=== PATIENT | female | born 1995 | race Caucasian/White ===

== ENCOUNTER 2016-07-14 11:01 | Outpatient (CLI) | payer MEDICAID | END 2016-07-14 11:02 | disposition home or self-care (01) | DX: E03.9 Hypothyroidism, unspecified (principal) ==

== ENCOUNTER 2017-06-12 23:46 | Emergency (ER) | payer MEDICAID ==
--- NOTE | 2017-06-13 01:44 | ED Physician Documentation ---
PD HPI ABD PAIN - Stated complaint Stated Complaint: ABDOMINAL PAIN - Chief complaint Chief Complaint: Abd Pain - History obtained from History obtained from: Patient - History of Present Illness Timing - onset: How many hours ago (approximately 24 hours ago) Timing - details: Gradual onset, Intermittant, Waxing and waning Pain level now: 6 Quality: Pain Location: Other (right flank and back) Improved by: Other (no ameliorating factors) Worsened by: Breathing Associated symptoms: Nausea, Vomiting. No: Fever, Diarrhea, Constipation Similar symptoms before: Has not had sx before Recently seen: Not recently seen Review of Systems Constitutional: denies: Fever, Chills, Sweats Cardiac: reports: Reviewed and negative Respiratory: reports: Reviewed and negative GI: reports: Abdominal Pain (right flank and back), Nausea, Vomiting. denies: Abdominal Swelling, Constipation, Diarrhea : denies: Dysuria, Frequency, Now EGA PD PAST MEDICAL HISTORY - Past Medical History Past Medical History: Yes Respiratory: Asthma Endocrine/Autoimmune: HyPOthyroidism GI: Cholelithiasis - Past Surgical History Past Surgical History: Yes General: Cholecystectomy HEENT: Tonsil/Adenoidectomy - Present Medications Home Medications: Ambulatory Orders Medication Instructions Recorded Confirmed traMADol [Ultram] 100 mg PO Q6H PRN #20 tablet 06/13/17 - Allergies Allergies/Adverse Reactions: Allergies Allergy/AdvReac Type Severity Reaction Status Date / Time No Known Drug Allergies Allergy Verified 06/12/17 23:54 - Social History Does the pt smoke?: Yes Smoking Status: Current every day smoker Does the pt drink ETOH?: Yes Substance Use and Type: Marijuana - Immunizations Immunizations are current?: No Immunizations: TDAP >10years/unknown PD ED PE NORMAL - Vitals Vital signs reviewed: Yes - General General: Alert and oriented X 3, No acute distress, Well developed/nourished - HEENT HEENT: Moist mucous membranes - Cardiac Cardiac: RRR, No murmur - Respiratory Respiratory: No respiratory distress, Clear bilaterally - Abdomen Abdomen: Normal bowel sounds, Soft, Non tender, Non distended, No organomegaly - Back Back: No CVA TTP - Derm Derm: No rash Results - Vitals Vitals: Oxygen O2 Source Room air - Labs Labs: Laboratory Tests 06/13/17 06/13/17 06/13/17 01:40 02:00 02:00 WBC 10.3 RBC 4.97 Hgb 13.9 Hct 41.9 MCV 84.3 MCH 27.9 MCHC 33.1 RDW 13.5 Plt Count 279 MPV 7.9 Neut # 5.6 Lymph # 3.8 H [place] # 0.7 Eos # 0.1 Baso # 0.1 Absolute Nucleated RBC 0.00 Nucleated RBC % 0.0 D-Dimer Sodium 136 Potassium 4.1 Chloride 102 Carbon Dioxide 25 Anion Gap 9.0 BUN 16 Creatinine 0.8 Estimated GFR (MDRD) 91 Glucose 89 Calcium 9.6 Total Bilirubin 0.5 AST 13 ALT 13 Alkaline Phosphatase 67 Total Protein 7.8 Albumin 4.3 Globulin 3.5 Albumin/Globulin Ratio 1.2 Lipase < 10 L Urine Color YELLOW Urine Clarity CLEAR Urine pH 6.5 Ur Specific [place] 1.020 Urine Protein NEGATIVE Urine Glucose (UA) NEGATIVE Urine Ketones NEGATIVE Urine Occult Blood NEGATIVE Urine Nitrite NEGATIVE Urine Bilirubin NEGATIVE Urine Urobilinogen 0.2 (NORMAL) Ur Leukocyte Esterase TRACE H Urine RBC 0-5 Urine WBC 6-10 H Ur Squamous Epith Cells MANY Squamous H Urine Bacteria Rare Ur Microscopic Review INDICATED Urine Culture Comments NOT INDICATED Urine HCG, Qual NEGATIVE 06/13/17 02:00 WBC RBC Hgb Hct MCV MCH MCHC RDW Plt Count MPV Neut # Lymph # [place] # Eos # Baso # Absolute Nucleated RBC Nucleated RBC % D-Dimer 246.9 Sodium Potassium Chloride Carbon Dioxide Anion Gap BUN Creatinine Estimated GFR (MDRD) Glucose Calcium Total Bilirubin AST ALT Alkaline Phosphatase Total Protein Albumin Globulin Albumin/Globulin Ratio Lipase Urine Color Urine Clarity Urine pH Ur Specific [place] Urine Protein Urine Glucose (UA) Urine Ketones Urine Occult Blood Urine Nitrite Urine Bilirubin Urine Urobilinogen Ur Leukocyte Esterase Urine RBC Urine WBC Ur Squamous Epith Cells Urine Bacteria Ur Microscopic Review Urine Culture Comments Urine HCG, Qual - Rads (name of study) chest xray Radiology: Prelim report reviewed, See rad report CT A/P Radiology: Prelim report reviewed, See rad report PD MEDICAL DECISION MAKING - ED course Complexity details: reviewed results, re-evaluated patient, considered differential, d/w patient Departure - Departure Disposition: 01 Home, Self Care Clinical Impression: Flank pain, Atelectasis of both lungs Condition: Good Instructions: ED Atelectasis, ED Flank Pain Uncertain Cause Follow-Up: Manas Oneil PA-C [Primary Care Provider] - Prescriptions: traMADol [Ultram] 100 mg PO Q6H PRN #20 tablet PRN Reason: Pain Discharge Date/Time: 06/13/17 05:00
[2017-06-13] MEDS ORDERED: KETOROLAC 60 MG/2 ML VIAL IVP STA (02:02)
[2017-06-13 02:13] LABS: BASOPHILS # (AUTO) 0.1 10^3/uL (0.0-0.1); BASOPHILS % (AUTO) 0.6 %; EOSINOPHILS # (AUTO) 0.1 10^3/uL (0.0-0.7); EOSINOPHILS % (AUTO) 1.3 %; HGB - HEMOGLOBIN 13.9 g/dL (12.0-16.0); LYMPHOCYTES # (AUTO) 3.8 10^3/uL (1.5-3.5); LYMPHOCYTES % (AUTO) 36.6 %; MEAN CORPUSCULAR HEMOGLOBIN 27.9 pg (27.0-31.0); MEAN CORPUSCULAR HGB CONC 33.1 g/dL (32.0-36.0); MEAN CORPUSCULAR VOLUME 84.3 fL (81.0-99.0); MEAN PLATELET VOLUME 7.9 fL (7.9-10.8); MONOCYTES # (AUTO) 0.7 10^3/uL (0.0-1.0); MONOCYTES % (AUTO) 7.2 %; NEUTROPHILS # (AUTO) 5.6 10^3/uL (1.5-6.6); NEUTROPHILS % (AUTO) 54.3 %; PLT - PLATELET COUNT 279 10^3/uL (130-450); RED BLOOD COUNT 4.97 10^6/uL (4.20-5.40); RED CELL DISTRIBUTION WIDTH 13.5 % (12.0-15.0); WHITE BLOOD COUNT 10.3 x10^3/uL (4.8-10.8)
[2017-06-13 02:14] LABS: BILIRUBIN,URINE NEGATIVE (NEGATIVE); GLUCOSE, URINE (UA) NEGATIVE (NEGATIVE); KETONES,URINE (UA) NEGATIVE (NEGATIVE); LEUKOCYTE ESTERASE, URINE TRACE (NEGATIVE); NITRITE,URINE NEGATIVE (NEGATIVE); OCCULT BLOOD,URINE NEGATIVE (NEGATIVE); PH,URINE 6.5 PH (5.0-7.5); PROTEIN,URINE NEGATIVE (NEGATIVE); UROBILINOGEN,URINE 0.2 (NORMAL) E.U./dL (NORMAL)
[2017-06-13 02:17] LABS: CLARITY,URINE CLEAR (CLEAR); HCG UR QUAL NEGATIVE
[2017-06-13 02:18] LABS: BACTERIA,URINE Rare /HPF (None Seen); RBC,URINE 0-5 /HPF (0-5); SQUAMOUS EPITHELIAL CELL,UR MANY Squamous (<= Few)
[2017-06-13 02:36] LABS: ALBUMIN 4.3 g/dL (3.2-5.5); ALBUMIN/GLOBULIN RATIO 1.2 (1.0-2.2); ALKALINE PHOSPHATASE 67 IU/L (42-121); ALT ALANINE AMINOTRANSFERASE 13 IU/L (10-60); AST ASPARTATE AMINOTRANSFERASE 13 IU/L (10-42); BILIRUBIN,TOTAL 0.5 mg/dL (0.2-1.0); BUN - BLOOD UREA NITROGEN 16 mg/dL (6-20); CALCIUM 9.6 mg/dL (8.5-10.3); CARBON DIOXIDE - CO2 25 mmol/L (21-32); CHLORIDE 102 mmol/L (101-111); CREATININE 0.8 mg/dL (0.4-1.0); GFR - MDRD 91 (>89); GLUCOSE 89 mg/dL (70-100); SODIUM 136 mmol/L (135-145); TOTAL PROTEIN 7.8 g/dL (6.7-8.2)
[2017-06-13 02:43] LABS: LIPASE < 10 U/L (22-51)
--- NOTE | 2017-06-13 03:08 | XRAY Report ---
EXAM: CHEST RADIOGRAPHY EXAM DATE: 06/13/2017 02:57 AM. CLINICAL HISTORY: Right chest pain. COMPARISON: None. TECHNIQUE: 2 views. FINDINGS: Lungs/Pleura: Small lung volumes. Bibasilar atelectasis or infiltrate. No pleural effusion seen. No p neumothorax. Mediastinum: Heart and mediastinal contours are unremarkable. Other: None. IMPRESSION: 1. Small lung volumes with bibasilar atelectasis or infiltrate. [facility] Referring Provider Line: [phone] SITE ID: [id number]
--- NOTE | 2017-06-13 03:08 | XRAY Preliminary Report ---
Exam: XR CHEST 2 VIEW X-RAY IMPRESSION: 1. Small lung volumes with bibasilar atelectasis or infiltrate. [facility] SITE ID: [id number]
--- NOTE | 2017-06-13 03:13 | CT Report ---
EXAM: CT ABDOMEN AND PELVIS (CT KUB) EXAM DATE: 06/13/2017 02:57 AM. CLINICAL HISTORY: Right flank pain. COMPARISONS: None. TECHNIQUE: Routine axial helical CT imaging was performed through the abdomen and pelvis without IV c ontrast. Reconstructions: Coronal and sagittal. In accordance with CT protocol optimization, one or more of the following dose reduction techniques w ere utilized for this exam: automated exposure control, adjustment of mA and/or KV based on patient s ize, or use of iterative reconstructive technique. FINDINGS: Lung Bases: Bibasilar atelectasis or infiltrate. Right Kidney/Ureter: No stones, hydronephrosis, or hydroureter. No perinephric fat stranding. Left Kidney/Ureter: No stones, hydronephrosis, or hydroureter. No perinephric fat stranding. Other Solid Organs: No focal lesions seen in the liver on this noncontrast examination. Mild splenome jean measuring 13.5 cm. Pancreas and adrenals are unremarkable. Gallbladder/Bile Ducts: Status post cholecystectomy. Peritoneal Cavity: Moderate stool in the colon. No diverticulitis. No bowel obstruction. No free air or free fluid. No lymphadenopathy. Appendix appears normal. Pelvic Organs: IUD in place. Probable left ovarian cyst measuring 2.1 cm. Vasculature: Unremarkable. Other: None. IMPRESSION: 1. No urolithiasis seen. 2. Appendix appears normal. 3. Moderate stool in the colon. 4. Bibasilar atelectasis or infiltrate. 5. Probable left ovarian cyst measuring 2.1 cm. 6. Mild splenomegaly. [facility] Referring Provider Line: [phone] SITE ID: [id number]
--- NOTE | 2017-06-13 03:13 | CT Preliminary Report ---
Exam: CT ABDOMEN/PELVIS W/O IMPRESSION: 1. No urolithiasis seen. 2. Appendix appears normal. 3. Moderate stool in the colon. 4. Bibasilar atelectasis or infiltrate. 5. Probable left ovarian cyst measuring 2.1 cm. 6. Mild splenomegaly. [facility] SITE ID: [id number]
[2017-06-13] MEDS ORDERED: traMADol 50 MG TABLET PO STA (04:46)
[2017-06-13 04:53] VITALS: BP 118/65
== END 2017-06-13 05:00 | disposition home or self-care (01) ==
LOC: ED 23:46
DX: R10.31 Right lower quadrant pain (principal); J98.11 Atelectasis; E03.9 Hypothyroidism, unspecified; F17.200 Nicotine dependence, unspecified, uncomplicated
CPT/HCPCS: 36415; 71046; 74176; 80053; 81001; 81025; 83690; 85025; 85379; 96374; 99283; A9270; 81003; 87086

== ENCOUNTER 2021-12-28 16:39 | Emergency (ER) | payer MEDICAID ==
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
[2021-12-28] MEDS ORDERED: LIDOCAINE OINTMENT 5% 35.44 GM TUBE TOP STA (19:01)
[2021-12-28] MEDS ORDERED: DEXAMETHASONE 10 MG/ML VIAL PO STA (19:02)
--- NOTE | 2021-12-28 19:02 | ED Physician Documentation ---
History of Present Illness - Stated complaint Stated Complaint: FEMALE - Chief complaint Chief Complaint: Abd Pain - History obtained from History obtained from: Patient - History of Present Illness Timing: How many days ago (9) Pain level max: 7 Pain level now: 7 - Additonal information Additional information: Patient is a 26-year-old female who presents to the emergency department with increasing hemorrhoidal pain over the past several days. Has a longstanding history of external hemorrhoids. She states that elyt-xvk-cxatljr medications are not helping. No fevers. No chills. No constipation. No diarrhea. Review of Systems Constitutional: denies: Fever, Chills Respiratory: denies: Cough GI: denies: Nausea, Vomiting, Diarrhea : denies: Now EGA Skin: denies: Rash Musculoskeletal: denies: Neck pain, Back pain PD PAST MEDICAL HISTORY - Past Medical History Past Medical History: Yes Respiratory: Asthma Endocrine/Autoimmune: HyPOthyroidism GI: Cholelithiasis - Past Surgical History Past Surgical History: Yes General: Cholecystectomy HEENT: Tonsil/Adenoidectomy - Present Medications Home Medications: Ambulatory Orders Medication Instructions Recorded Confirmed Dextroamphetamine/Amphetamine 5 mg PO DAILY 12/28/21 12/28/21 [Adderall 10 mg Tablet] HYDROcod/ACETAM 5/325 [[place] 5/325] 1 - 2 ea PO Q6H PRN #14 tablet 12/28/21 Hydrocortisone [Anusol-Hc] 30 gm RC BID #20 ea 12/28/21 Levothyroxine [Synthroid] 25 mcg PO DAILY 12/28/21 12/28/21 Lidocaine Ointment 5% [Xylocaine 1 applic TOP QID PRN #35.44 gm 12/28/21 Ointment 5%] busPIRone [Buspar] 5 mg PO DAILY PRN 12/28/21 12/28/21 - Allergies Allergies/Adverse Reactions: Allergies Allergy/AdvReac Type Severity Reaction Status Date / Time No Known Drug Allergies Allergy Verified 12/28/21 16:55 - Social History Does the pt smoke?: Yes Smoking Status: Current every day smoker Does the pt drink ETOH?: Yes - Immunizations Immunizations are current?: No Immunizations: TDAP >10years/unknown PD ED PE NORMAL - Vitals Vital signs reviewed: Yes - General General: Alert and oriented X 3, No acute distress - HEENT HEENT: Moist mucous membranes - Abdomen Abdomen: Soft, Non tender, Non distended - Rectal Rectal: Other (Chaperoned Tita RN. - Inflamed hemorrhoids, erythematous, not purple or thrombosed. Several large hemorrhoids. Tender to palpation. No bleeding.) - Derm Derm: Warm and dry - Neuro Neuro: Alert and oriented X 3 Results - Vitals Vitals: Vital Signs - 24 hr 12/28/21 12/28/21 12/28/21 16:52 19:05 19:45 Temperature 37.2 C 37.2 C Heart Rate 76 72 Respiratory 16 16 16 Rate Blood Pressure 148/89 H 141/81 H O2 Saturation 97 98 Oxygen O2 Source Room air PD MEDICAL DECISION MAKING - ED course Complexity details: re-evaluated patient, considered differential, d/w patient ED course: 26-year-old female with what appears to be inflamed but not thrombosed hem orrhoids. We will place on topical lidocaine, steroids, sitz bath's and have her follow-up with surgery for excision. Patient is well-appearing, nontoxic. Afebrile. Patient counseled regarding signs and symptoms for which I believe and urgent re-evaluation would be necessary. Patient with good understanding of and agreement to plan and is comfortable going home at this time This document was made in part using voice recognition software. While efforts are made to proofread this document, sound alike and grammatical errors may occur. Departure - Departure Disposition: 01 Home, Self Care Clinical Impression: Inflamed external hemorrhoid Condition: Good Instructions: ED Hemorrhoids Follow-Up: Ru Degroot MD [Provider Admit Priv/Credential] - Surgical Care [Provider Group] Prescriptions: Hydrocortisone [Anusol-Hc] 30 gm RC BID #20 ea HYDROcod/ACETAM 5/325 [[place] 5/325] 1 - 2 ea PO Q6H PRN #14 tablet PRN Reason: Pain Lidocaine Ointment 5% [Xylocaine Ointment 5%] 1 applic TOP QID PRN #35.44 gm PRN Reason: hemorrhoid pain Comments: Use the medication as prescribed. This should help with your hemorrhoid pain. Continue sitz bath's as well. Please follow-up with the surgery to consult regarding surgical excision of the hemorrhoids. Return if you worsen. Your prescriptions were sent to [facility] in [place]. I am prescribing a short course of narcotic pain medication for you. These are potentially dangerous and addictive medications that should be used carefully. These medications may constipate you. Take an cawq-sko-glcygao stool softener (docusate) twice daily with plenty of water while taking these medications. If you go 24 hours without a bowel movement, take ffbk-acj-gfeepto miralax, per package instructions. Do not drink or drive while taking these medications. If you received narcotic or sedating medications while in the emergency department, do not drive for 24 hours. Store this medication in a safe, secure place and out of reach of children. It is a violation of federal law to give or sell this medication to another person or to use in a manner other than prescribed. The ED will not refill narcotic prescriptions, including prescriptions lost or stolen. To dispose of unwanted medications: 1. [facility] [address] in [place] has a medication drop box. They accept prescription medications (in pill form) Monday through Monday 9:00 a.m. to 5:00 p.m. 2. [facility] accepts prescription medications (in pill form only) for disposal year round. Call for more information. 3. Contact the [facility] for the next [facility] sponsored prescription drug collection event. , [phone], or [phone]; Discharge Date/Time: 12/28/21 19:45
[2021-12-28] MEDS ORDERED: oxyCODONE 5 MG TABLET PO STA (19:28)
[2021-12-28 19:46] VITALS: BP 141/81
== END 2021-12-28 19:45 | disposition home or self-care (01) ==
LOC: ED 16:39
DX: K64.4 Residual hemorrhoidal skin tags (principal); F17.200 Nicotine dependence, unspecified, uncomplicated
CPT/HCPCS: 99282; 99283; A9270

== ENCOUNTER 2023-02-23 09:22 | Outpatient (CLI) | payer MEDICAID ==
[2023-02-23 10:48] LABS: THYROID STIMULATING HORMONE 14.86 uIU/mL (0.34-5.60)
[2023-02-24 06:10] LABS: HIV SCREEN 4TH GENERATION Non Reactive (Non Reactive)
[2023-02-24 08:10] LABS: RPR Non Reactive (Non Reactive)
== END 2023-02-23 09:23 | disposition home or self-care (01) ==
LOC: LAB 09:22
PROVIDERS: ATTEND Obstetrics & Gynecology
DX: E03.9 Hypothyroidism, unspecified (principal); Z20.2 Contact with and (suspected) exposure to infections with a predominantly sexual mode of transmission
CPT/HCPCS: 36415; 84436; 84443; 84480; 86592; 87389

== ENCOUNTER 2023-05-15 16:55 | Outpatient (CLI) | payer MEDICAID ==
--- NOTE | 2023-05-16 09:44 | Ultrasound Report ---
PROCEDURE: Pelvic w/Transvaginal INDICATIONS: CHRONIC PELVIC PAIN TECHNIQUE: Real-time scanning was performed of the pelvic organs, with image documentation. Additional endovagi nal scanning was necessary due to incomplete visualization of the adnexal and endometrial structures by transabdominal scanning. COMPARISON: None. FINDINGS: Uterus: Uterus is retroverted and normal in size at 8.7 x 4.9 x 5.7 cm. The myometrium is homogeneo us. The endometrium measures 7 mm in combined thickness. Ovaries: The right ovary measures 2.9 x 1.5 x 3 cm, with a calculated ovarian volume of 7 cc. The l eft ovary measures 3.5 x 1.9 x 2.4 cm, with a calculated ovarian volume of 8 cc. The ovaries have a normal sonographic appearance. Greater than 12 follicles can be seen in each ovary. No adnexal mass es are seen. No cystic lesions measuring greater than 3 cm. Other: No pathologic free abdominal or pelvic fluid. IMPRESSION: Greater than 12 follicles can be seen in each ovary, which can be seen in the clinical setting of PCO S. Reviewed by: Pablito Soto MD on 05/16/2023 9:43 AM PST Approved by: Pablito Soto MD on 05/16/2023 9:43 AM PST Station ID: [id number]
== END 2023-05-15 16:56 | disposition home or self-care (01) ==
LOC: DI 16:55
PROVIDERS: ATTEND Obstetrics & Gynecology
DX: R10.2 Pelvic and perineal pain (principal)